=== PATIENT | female | born 1990 | race Two or more races ===

== ENCOUNTER → 2022-10-31 | Emergency (ER) | payer OTHER ==
[~2022-10-31] VITALS: Ht 154.9 cm; Wt 83.9 kg
--- NOTE | 2022-10-31 17:02 | NUR ---
TO ER BED 1, NO CHANGE IN CONDITION
--- NOTE | 2022-10-31 17:05 | NUR ---
BIBS C/O EAR PAIN X 1WEEK THAT RADIATES TO HER HEAD, TEETH, THROAT, AND CHEST, WENT TO URGENT CARE 2 DAYS AGO GIVEN ANTIBIOTICS NO RELIEF
--- NOTE | 2022-10-31 17:39 | NUR ---
Patient discharged to home in stable condition. Written and verbal after care instructions given. Patient verbalizes understanding of instruction.
[2022-10-31 17:41] VITALS: BP 128/75
== END | disposition home or self-care (01) ==
LOC: ER 15:37
DX: H60.91 Unspecified otitis externa, right ear (principal)